=== PATIENT | female | born 1965 | race Two or more races ===

== ENCOUNTER → 2016-08-12 | Day surgery (SDC) | payer BC ==
[~2016-08-12] VITALS: Ht 165.1 cm; Wt 56.7 kg
[2016-08-12] VITALS (9 sets, daily range): BP systolic 114–131; BP diastolic 67–75
[~2016-08-12] MED LIST: ANASTROZOLE1 MG PO; CALCIUM500 M2 PO; FISH OIL 1,4001 EAC1 PO; LR 1000ml 1,000 ML IVLG SCH; LR 1000ml ONE; Lidocaine 1% MPF 10mg/ml 5ml ONE; MAGNESIUM500 MG PO; MULTIVITAMINS1 EAC2 ORAL; Propofol 10mg/ml 20ml IV ONE; SYNTHROID125 MCG ORAL; VITAMIN D400 INTLU ORAL
--- NOTE | 2016-08-12 07:51 | Immediate Post-Op Evaluation ---
Immediate Post-Op Evalulation Immediate Post-Op Evalulation Procedure: colonoscopy Date of Evaluation: Aug 12, 2016 Time of Evaluation: 10:08 IV Fluids: 500 ml Blood Products: 0 Estimated Blood Loss: 0 Urinary Output: nm Blood Pressure Systolic: 121 Blood Pressure Diastolic: 66 Pulse Rate: 78 Respiratory Rate: 16 O2 Sat by Pulse Oximetry: 99 Temperature (Fahrenheit): 97.7 Pain Score (1-10): 0 Nausea: No Vomiting: No Complications none Patient Status: awake, patent, none Hydration Status: adequate Drug: none NIKKIE BADILLO M.D. Aug 12, 2016 07:51
--- NOTE | 2016-08-12 07:52 | 48 Hour Post Anesthesia Eval ---
Post Anesthesia Evaluation Procedure: colonoscopy Date of Evaluation: Aug 12, 2016 Time of Evaluation: 10:59 Blood Pressure Systolic: 115 0: 68 Pulse Rate: 72 Respiratory Rate: 18 Temperature (Fahrenheit): 97.6 O2 Sat by Pulse Oximetry: 98 Airway: patent Nausea: No Vomiting: No Pain Intensity: 0 Hydration Status: adequate Cardiopulmonary Status: stable Mental Status/LOC: other - drowsy Follow-up Care/Observations: per PACU protocol Follow-up care needed: N/A NIKKIE BADILLO M.D. Aug 12, 2016 07:52
--- NOTE | 2016-08-12 09:36 | Short Stay Surgery H&P ---
History of Present Illness History of Present Illness Chief Complaint screening colonoscopy. MERARY Hager is a 51 year old female who was admitted on for Colon Screening Patient History Allergies: Coded Allergies: No Known Allergies (Unverified , 08/11/16) PAST MEDICAL HISTORY: Past Surgeries: (1) Breast cancer Social History: Medication History Scheduled Anastrozole* (Arimidex*), 1 MG PO DAILY, (Reported) Calcium Carbonate (Calcium), 1,000 MG PO DA, (Reported) Levothyroxine Sodium* (Synthroid*), 125 MCG ORAL DAILY, (Reported) Magnesium Oxide (Magnesium), 500 MG PO DA, (Reported) Multivitamins* (Multivitamins*), 2 TAB ORAL DAILY, (Reported) [place]-3/Dha/Epa/Fish Oil (Fish Oil 1,400 Mg Softgel), 1 EACH PO DA, (Reported) Vitamin D (Vitamin D3), 2,000 UNITS ORAL DAILY, (Reported) Review of Systems Cardiovascular: Reports: no symptoms Respiratory: Reports: no symptoms Skeletal: Reports: no symptoms Gastrointestinal: Reports: no symptoms Genitourinary: Reports: no symptoms Neurologic: Reports: no symptoms Endocrine: Reports: no symptoms Hematologic: Reports: no symptoms Physical Exam Vital Signs Last Vital Signs Date Time Temp Pulse Resp B/P Pulse Ox O2 Delivery O2 Flow Rate FiO2 08/12/16 09:09 97.8 79 17 114/72 100 Room Air Skin: normal HENT: normal Heart: normal Lungs: normal Abdomen: normal Extremities: normal Genitourinary: normal Plan Plan of Care Colonoscopy. Preop Interventions None. Summary of Findings See the reports Final Diagnosis: Attestation Are the patient's medical conditions optimized for surgery? Attestation Response: yes NARINDER ODONNELL Aug 12, 2016 09:35
--- NOTE | 2016-08-12 09:37 | Pre-Procedure Note/Attestation ---
Pre-Procedure Note/Attestation Complete Prior to Procedure Planned Procedure: left Procedure Narrative: Endoscopic exam of the colon. Indications for Procedure Pre-Operative Diagnosis: R/O colon cancer. Attestation I attest that I discussed the nature of the procedure; its benefits; risks and complications; and alternatives (and the risks and benefits of such alternatives ), prior to the procedure, with the patient (or the patient's legal compliance representative dealer). I attest that, if there was a reasonable possibility of needing a blood transfusion, the patient (or the patient's legal compliance representative dealer) was given the [facility] standardized written summary, pursuant to the Shaquille Geri Blood Safety Act ([place] Health and Safety Code # 1645, as amended). I attest that I re-evaluated the patient just prior to the surgery and that there has been no change in the patient's H&P, except as documented below: BELLE,SAID Aug 12, 2016 09:36
--- NOTE | 2016-08-12 09:41 | Anethesia Preoperative Eval ---
Anesthesia Pre-op PMH/ROS General Date of Evaluation: Aug 12, 2016 Time of Evaluation: 09:33 Anesthesiologist: Tatiana ASA Score: ASA 2 Mallampati Score Class I : Soft palate, uvula, fauces, pillars visible Class II: Soft palate, uvula, fauces visible Class III: Soft palate, base of uvula visible Class IV: Only hard plate visible Mallampati Classification: Class II Surgeon: Esau Diagnosis: colon screening Surgical Procedure: screening colonoscopy Anesthesia History: other - no complications Allergies: Coded Allergies: No Known Allergies (Unverified , 08/11/16) Medications: see eMAR Past Medical History Other: other - breast ca 2009 PMH Narrative: no BP or IV right arm Anesthesia Pre-op Phys. Exam Physician Exam Last Vital Signs Date Time Temp Pulse Resp B/P Pulse Ox O2 Delivery O2 Flow Rate FiO2 08/12/16 09:09 97.8 79 17 114/72 100 Room Air Constitutional: NAD Neurologic: CN 2-12 intact Cardiovascular: RRR Respiratory: CTA Airway Exam Mallampati Score: Class I MO: full ROM: full NIKKIE BADILLO M.D. Aug 12, 2016 09:41
--- NOTE | 2016-08-12 09:57 | Endoscopy Procedure Note ---
Endoscopy Procedure Note Indication for Procedure: History of breast CA, screening colon. Procedures Performed: colonoscopy - Completely normal total colonoscopy with highly redundant left colon. Specimen: none Pt Tolerated Procedure Well: Yes Estimated Blood Loss: none Anesthesiologist: Dr. Simpson Anesthesia: moderate sedation Medication Given: see anesthesia record Implant(s) used?: No 50 yrs or older w/o bx or poly: No 10yrs. F/U not recommended: Yes <3yrs. since last colonoscopy: No Med reason:<3 yrs.: System Reason:<3 yrs.: Last colonoscopy >= to 3yrs: Yes NARINDER ODONNELL Aug 12, 2016 09:57
--- NOTE | 2016-08-12 09:58 | Discharge Instructions ---
Discharge Instructions Discharge Instructions Follow up with: Doctor will discuss the findings with you that was normal. For Congestive Heart Failure Reminder Report to your physician any weight gain of 5 pounds or more in one week. BELLE,SAID Aug 12, 2016 09:58
--- NOTE | 2016-08-12 12:28 | Operative Note - Dictated ---
PROCEDURE: Screening colonoscopy. PREOPERATIVE DIAGNOSES: History of breast cancer and screening colonoscopy. POSTOPERATIVE DIAGNOSES: Completely normal total colonoscopy with highly redundant left colon. MEDICATION USED: Per Dr. Stewart, anesthesiologist. INSTRUMENT: GIF Olympus videocolonoscope. DESCRIPTION OF PROCEDURE: The patient after arriving endoscopy unit, was told about risks and benefits of the procedure, which she accepted and signed the informed consent. She was then put on the left lateral decubitus position. After adequate IV sedation, the scope was gently passed through the anal area and careful examination of this area along with performance of retroflexion maneuver, which did not reveal any pathology in the rectal area including hemorrhoids, polyps, tumors, inflammatory process, ulcers, etc. At this point, the scope was gradually passed through highly redundant left colon reaching towards the left splenic flexure, transverse colon, hepatic flexure, and finally right colon all the way to the base of the cecum. All these areas remained to be normal and there was no any evidence of polyps, tumors, stricture, ulcers etc. The colon cleanup was moderate and within 7 minutes the scope was gradually pulled out. On re-evaluation of the colon did not add anymore pathology rather than what is stated earlier, which was basically not at all. The patient tolerated the procedure well and left the endoscopy room in good condition. Said Sandee Cifuentes DR: Eliseo JOB#: [id number] CC:
== END | disposition home or self-care (01) ==
LOC: GAS 08:30
DX: Z12.11 Encounter for screening for malignant neoplasm of colon (principal); Q43.8 Other specified congenital malformations of intestine; Z85.3 Personal history of malignant neoplasm of breast
CPT/HCPCS: 45378; J2704; J7120; 94003; 94150